=== PATIENT | male | born 1935 | race Caucasian/White ===

== ENCOUNTER 2017-12-14 08:02 | Emergency (ER) | payer MEDICARE, OTHER ==
[~2017-12-14] VITALS: Ht 172.7 cm; Wt 84.1 kg
[2017-12-14] MEDS ORDERED: CHOL200074 PO (08:15)
[2017-12-14] MEDS ORDERED: ALLERTEC PO (08:15)
[2017-12-14] MEDS ORDERED: LOVA40TA2 PO (08:15)
[2017-12-14] MEDS ORDERED: VALS320T2 PO (08:15)
[2017-12-14] MEDS ORDERED: LIDOCAINE-MPF 1%, 2ML ONE ×2 (08:23→08:35)
[2017-12-14] MEDS ORDERED: PHENYLEPHRINE NASAL 1%, 15ML SPRAY ONE ×2 (08:23→08:35)
[2017-12-14 09:05] LABS: BASOPHILS # (AUTO) 0.03 x10^3/uL (0-0.1); BASOPHILS % (AUTO) 0 % (0-1); EOSINOPHILS # (AUTO) 0.04 x10^3/uL (0-0.4); EOSINOPHILS % (AUTO) 1 % (1-7); LYMPHOCYTES # (AUTO) 1.08 x10^3/uL (1-3.4); LYMPHOCYTES % (AUTO) 18 % (22-44); MD NO; MEAN CORPUSCULAR HGB CONC 33.6 g/dL (33.2-36.2); MEAN CORPUSCULAR VOLUME 95.2 fL (81-97); MEAN PLATELET VOLUME 9.2 fL (7.4-10.4); MONOCYTES # (AUTO) 0.71 x10^3/uL (0.2-0.8); MONOCYTES % (AUTO) 12 % (2-9); NEUTROPHILS # (AUTO) 4.02 x10^3/uL (1.8-6.8); NEUTROPHILS % (AUTO) 69 % (42-75); PLATELET COUNT 198 x10^3/uL (130-400); RED BLOOD COUNT 4.27 x10^6/uL (4.38-5.82); RED CELL DISTRIBUTION WIDTH 13.4 % (9.4-14.8)
[2017-12-14 09:13] LABS: INTERNATIONAL NORMALIZED RATIO 1.03 (0.93-1.1); PROTHROMBIN TIME 10.7 Seconds (9.6-11.5)
[2017-12-14 09:18] LABS: ALBUMIN 3.5 g/dL (3.4-5.0); ANION GAP 9 mmol/L (5-15); CALCIUM 8.5 mg/dL (8.5-10.1); CHLORIDE 115 mmol/L (98-107); CREATININE 1.06 mg/dL (0.7-1.3)
[2017-12-14 09:22] LABS: TROPONIN I < 0.015 ng/mL (0.000-0.045)
[2017-12-14 10:37] VITALS: BP 136/86
== END 2017-12-14 11:07 | disposition home or self-care (01) ==
LOC: ED 09:07
DX: R04.0 Epistaxis (principal)
CPT/HCPCS: 30901; 36415; 80048; 82040; 84484; 85025; 85610; 99284